=== PATIENT | female | born 1945 | race Caucasian/White ===

== ENCOUNTER 2020-01-30 14:21 | Inpatient (IN) | payer OTHER, MEDICAID, SELFPAY ==
[~2020-01-30] VITALS: Ht 152.4 cm; Wt 84.2 kg
[2020-01-30 14:38] VITALS: BP_SYST 141
--- NOTE | 2020-01-30 14:38 | NUR ---
Patient to ER bed 08 to gown for evaluation. Side rails up.
--- NOTE | 2020-01-30 14:40 | NUR ---
Pt brought by ambulance, A&Ox3, pt presents to ER for recent Dx of pneumonia not improving with Z-pack ,pt O2 90%, recent fever, current temp 97.7 ,pt placed on 2L oxygen, respirations even and unlabored, cap refill <3, pt also c/o chronic back pain, pt has a pending Covid test done last thursday, pt also had Covid testing December 22 and January 11 with negative results, will cont to monitor.
[2020-01-30] MEDS ORDERED: NACL 0.9% 3,000 ML IV ONE (15:12)
[2020-01-30] MEDS ORDERED: MEROPENEM 1 GM in NS 100 ML IV ONE (15:15)
[2020-01-30] MEDS ORDERED: VANCOMYCIN HCL 1,000 MG in NS 250 ML IV ONE (15:15)
--- NOTE | 2020-01-30 15:15 | NUR ---
Pt O2 89% room air ,placed on 2L oxygen NC
[2020-01-30] MEDS ORDERED: KETOROLAC TROMETHAMINE 30 MG VIAL IVP ONE (15:30)
--- NOTE | 2020-01-30 15:30 | NUR ---
Dr Hagen at bedside examining patient
--- NOTE | 2020-01-30 15:32 | NUR ---
report received from GENEVA Riojas. will continue care
[2020-01-30 15:50] LABS: BASOPHILS % (AUTO) 0.6 % (0.0-2.0); EOSINOPHILS # (AUTO) 0.3 K/uL (0.0-0.4); EOSINOPHILS % (AUTO) 5.6 % (0.0-4.0); HEMATOCRIT 39.1 % (36-48); HEMOGLOBIN 12.7 g/dL (12.0-16.0); LYMPHOCYTES # (AUTO) 1.7 K/uL (1.0-5.5); LYMPHOCYTES % (AUTO) 28.5 % (20.5-51.5); MEAN CORPUSCULAR HEMOGLOBIN 31 pg (27-31); MEAN CORPUSCULAR HGB CONC 33 % (32-36); MEAN CORPUSCULAR VOLUME 94 fL (79.0-98.0); MONOCYTES # (AUTO) 0.9 K/uL (0.0-1.0); MONOCYTES % (AUTO) 15.4 % (1.7-9.3); NEUTROPHILS # (AUTO) 2.9 K/uL (1.8-7.7); NEUTROPHILS % (AUTO) 49.9 % (40.0-70.0); PLATELET COUNT (AUTO) 277 K/uL (130-430); RED BLOOD CELL COUNT(AUTO) 4.15 MIL/uL (4.2-6.2); RED CELL DISTRIBUTION WIDTH 13.4 % (9.0-15.0); WHITE BLOOD COUNT (AUTO) 5.9 K/uL (4.8-10.8)
[2020-01-30 15:52] LABS: BILIRUBIN,URINE NEGATIVE (NEGATIVE); BLOOD, URINE NEGATIVE (NEGATIVE); CLARITY/URINE CLEAR (CLEAR); COLOR,URINE YELLOW (YELLOW); GLUCOSE,URINE NEGATIVE (NEGATIVE); KETONES,URINE NEGATIVE (NEGATIVE); LEUKOCYTE ESTERASE ,URINE NEGATIVE (NEGATIVE); NITRITE, URINE NEGATIVE (NEGATIVE); PROTEIN URINE NEGATIVE (NEGATIVE); UROBILINOGEN,URINE 0.2 (0.2-1.0)
--- NOTE | 2020-01-30 15:54 | NUR ---
Patient arrived with copy of POLST. Patient's code status is DNR with comfort focused treatment paperwork completed and placed in chart.
[2020-01-30] MEDS ORDERED: LORazepam 2 MG/ML VIAL IVP ONE (16:00)
[2020-01-30] MEDS ORDERED: MAGNESIUM SULFATE 50 ML IV ONE (16:00)
[2020-01-30] MEDS ORDERED: HALOPERIDOL LACTATE 5 MG/ML VIAL IM ONE (16:00)
[2020-01-30] MEDS ORDERED: methylPREDNISolone SOD SUCC/PF 62.5 MG/ML VIAL IVP ONE (16:00)
[2020-01-30 16:02] LABS: ANION GAP 10 (5-15); CALCIUM 8.8 mg/dL (8.4-11.0); CHLORIDE 102 mmol/L (98-107); CREATININE 1.66 mg/dL (0.55-1.30); GLUCOSE 106 mg/dL (70-99); POTASSIUM 4.5 mmol/L (3.5-5.1); SODIUM SERUM 137 mmol/L (136-145); UREA NITROGEN, BLOOD 25 mg/dL (8-21)
[2020-01-30 16:08] LABS: ALANINE AMINOTRANSFERASE 14 U/L (12-78); ALBUMIN 3.4 g/dL (3.4-4.8); ASPARTATE AMINOTRANSFERASE 17 U/L (10-37); TOTAL BILIRUBIN 0.6 mg/dL (0.0-1.0)
--- NOTE | 2020-01-30 16:26 | NUR ---
pATIENT COMPLAINING OF PAIN TO RIGHT HAND. SOME PURPLE DISCOLORATION NOTED. WILL REMOVE AND PLACE NEW ANGIOCATH
--- NOTE | 2020-01-30 16:39 | NUR ---
# 22 gauge angiocath placed to lt hand. Use of asceptic technique. Opsite placed over site. Blood return noted. Flushed with 10 cc of normal saline. No evidence of infiltration noted. Patient tolerated well.
--- NOTE | 2020-01-30 17:02 | NUR ---
Medication reconciliation completed with information provided by patient's [facility]. Any prior medication reconciliation on file was reviewed and corrected.
[2020-01-30] MEDS ORDERED: AMLO5TAB4 PO (17:35)
[2020-01-30] MEDS ORDERED: ACET325T53 PO (17:35)
[2020-01-30] MEDS ORDERED: BUSP10TA3 PO (17:35)
[2020-01-30] MEDS ORDERED: BUSP5TAB3 PO (17:35)
[2020-01-30] MEDS ORDERED: DIVA-74 PO (17:37)
[2020-01-30] MEDS ORDERED: OXYB10TA4 PO (17:37)
[2020-01-30] MEDS ORDERED: CEL20 PO (17:37)
[2020-01-30] MEDS ORDERED: dulcolax suppository RC (17:40)
[2020-01-30] MEDS ORDERED: MOM PO (17:49)
[2020-01-30] MEDS ORDERED: LISI10TA5 PO (17:49)
[2020-01-30] MEDS ORDERED: FURO-150 PO (17:49)
[2020-01-30] MEDS ORDERED: HYDR-4274 PO (17:49)
--- NOTE | 2020-01-30 17:57 | NUR ---
Patient will be admitted to care of Dr. Lama. Admitted to telemetry unit. bed placement pending. Complete and up to date summary report printed. SBAR report to be given at bedside with opportunity for questions.
[2020-01-30] MEDS ORDERED: IPRATROPIUM/ALBUTEROL SULFATE 3 ML AMPUL.NEB (DUONEB) INH PRN (18:00)
[2020-01-30] MEDS ORDERED: cefTRIAXone 1 GM in D5W 50 ML IV SCH (18:00)
[2020-01-30] MEDS ORDERED: ACETAMINOPHEN 500 MG TABLET PO PRN (18:00)
[2020-01-30] MEDS ORDERED: ONDANSETRON HCL 4 MG/2 ML VIAL IVP PRN (18:00)
[2020-01-30] MEDS ORDERED: LEVO88TA2 PO (18:02)
[2020-01-30] MEDS ORDERED: OLAN2.5T3 PO (18:02)
[2020-01-30] MEDS ORDERED: METH750T3 PO (18:02)
[2020-01-30] MEDS ORDERED: POTA20TA83 PO (18:02)
--- NOTE | 2020-01-30 18:20 | NUR ---
Bed placement at 1930. Patient informed.
--- NOTE | 2020-01-30 18:21 | NUR ---
called dietary for dinner tray
[2020-01-30] MEDS ORDERED: MILK OF MAGNESIA 30 ML UDC PO PRN (19:15)
[2020-01-30] MEDS ORDERED: OXYBUTYNIN CHLORIDE 5 MG XL TAB PO SCH (19:15)
--- NOTE | 2020-01-30 19:25 | NUR ---
Patient to go to bed 121C. Patient informed.
--- NOTE | 2020-01-30 19:26 | NUR ---
Bridger Portillo called informed patient is COVID 19 positive.
--- NOTE | 2020-01-30 19:50 | NUR ---
Transfer to TELEMETRY via ACLS protocol. Licensed nurse present. IV present no signs or symptoms of infiltration.
--- NOTE | 2020-01-30 20:30 | NUR ---
ADMISSION NOTE Received patient from ER via shanna, received report from GENEVA Pereyra. Patient admitted with diagnosis of acute chronic obstructive pulmonary disease exacerbation. Patient oriented to hospital routine, call light, toileting and safety-patient verbalized understanding.
--- NOTE | 2020-01-30 20:45 | NUR ---
DR MARIN INFORMED OF COVID RESULTS.
[2020-01-30 20:55] VITALS: BP_SYST 126
[2020-01-30 21:00] VITALS: BP_SYST 135
[2020-01-30] MEDS ORDERED: LISINOPRIL 10 MG TABLET (PRINIVIL) PO ONE (21:00)
[2020-01-30] MEDS ORDERED: POTASSIUM CHLORIDE 20 MEQ TAB.PRT.SR PO ONE (21:00)
[2020-01-30] MEDS: OLANZapine 2.5 MG TABLET PO SCH (21:20)
[2020-01-30] MEDS: DIVALPROEX SODIUM 250 MG TABLET(DEPAKOTE) PO SCH (21:20)
[2020-01-30] MEDS: ACETAMINOPHEN 325 MG TABLET PO PRN (21:20)
[2020-01-30] MEDS: busPIRone HCL 5 MG TABLET PO SCH (21:20)
[2020-01-30] MEDS: amLODIPine BESYLATE 5 MG TABLET PO SCH (21:30)
[2020-01-30] MEDS: CITALOPRAM HYDROBROMIDE 20 MG TABLET PO SCH (21:30)
[2020-01-30] MEDS: FUROSEMIDE 20 MG TABLET PO SCH (21:30)
[2020-01-30] MEDS: LEVOTHYROXINE SODIUM 0.088 MG TABLET PO SCH (21:30)
--- NOTE | 2020-01-30 21:30 | NUR ---
MEDICATIONS/ROUNDS Patient resting in bed, AAOx3, forgetful but able to let needs known, breathing evenly and nonlabored on 2L of oxygen via NC. Educated patient on due medications, patient stated understanding. Administered medications, patient tolerated them well. Patient complained of mild pain, educated patient on pain medication, nonpharmacological interventions, patient stated understanding. Administered pain medication, patient tolerated it well. No other needs at this time. Fall/safety/aspiration/isolation precautions, will continue to monitor. Addendum: 01/31/20 at 0720 by Khoi Erickson RN Celexa and Synthroid not given in ER.
--- NOTE | 2020-01-30 22:54 | NUR ---
CONSULT Paged Dr. Gonzalez regarding patient Elizabeth Vieyra for COPD. DR. Lama ordered.
--- NOTE | 2020-01-30 23:15 | NUR ---
ROUNDS Patient resting in bed, eyes closed, breathing evenly and nonlabored on 2L of oxygen via NC. No s/s of distress at this time, no other needs at this time. Fall/safety/aspiration/isolation precautions, will continue to monitor.
[2020-01-31 00:45] VITALS: BP_SYST 117
[2020-01-31] MEDS: methylPREDNISolone SOD SUCC 40 MG/ML VIAL IVP SCH ×3 (00:45→15:13)
--- NOTE | 2020-01-31 00:45 | NUR ---
MEDICATION/ROUNDS Patient resting in bed, eyes closed, breathing evenly and nonlabored on 2L of oxygen via NC. Vital signs stable. Educated patient on due medication, patient said "ok." Administered due medication, patient tolerated it well. No s/s of distress at this time, no other needs at this time. Fall/safety/aspiration/isolation precautions, will continue to monitor.
--- NOTE | 2020-01-31 06:58 | NUR ---
Nutrition Update Nuno Scale 17 noted. Pt admitted for COPD exacerbation Diet: Regular BMI: 37.5 kg/m2 RD to follow per nutrition care standards.
--- NOTE | 2020-01-31 06:58 | NUR ---
CLOSING NOTES Patient resting in bed, eyes closed, breathing evenly and nonlabored on 2L of oxygen via NC. Synthroid not available on all pixes, will endorse to morning shift RN. Needs met throughout the shift. No s/s of distress at this time, no other needs at this time. Fall/safety/aspiration/isolation precautions, will endorse care to morning shift RN.
[2020-01-31 08:00] VITALS: BP_SYST 136
--- NOTE | 2020-01-31 08:00 | NUR ---
Note Pt drowsy, but easily arousable. Pt has O2 on at 2L/nc and tele unit attached and intact at this time. No SOB/resp distress or pain/discomfort noted at this time. Pt's IV in left wrist intact and patent. Pt aware that breakfast tray on bedside table, states she will eat later on. Pt states she wants to go back to sleep. Pt next to nurses' station for close observation for needs and care. Call light within reach.
[2020-01-31] MEDS: LEVOTHYROXINE SODIUM 0.088 MG TABLET PO SCH (09:53)
[2020-01-31] MEDS: DIVALPROEX SODIUM 250 MG TABLET(DEPAKOTE) PO SCH ×2 (09:54→21:15)
[2020-01-31] MEDS: busPIRone HCL 5 MG TABLET PO SCH ×2 (09:54→21:15)
[2020-01-31] MEDS: CITALOPRAM HYDROBROMIDE 20 MG TABLET PO SCH (09:54)
[2020-01-31] MEDS: FUROSEMIDE 20 MG TABLET PO SCH ×2 (09:54→21:15)
[2020-01-31] MEDS: amLODIPine BESYLATE 5 MG TABLET PO SCH ×2 (09:54→21:15)
[2020-01-31] MEDS: POTASSIUM CHLORIDE 20 MEQ TAB.PRT.SR PO SCH (09:54)
[2020-01-31] MEDS: LISINOPRIL 10 MG TABLET (PRINIVIL) PO SCH (09:54)
--- NOTE | 2020-01-31 09:55 | NUR ---
Note Pt awake enough at this time (0945am) to take her PO medications. Pt was very drowsy since start of shift.
[2020-01-31 11:54] VITALS: BP_SYST 120
--- NOTE | 2020-01-31 14:15 | NUR ---
Note Pt has been using the BSC and ambulates to restroom to void and have bowel movement. Pt ate very little of her breakfast and lunch tray. Pt requested and received her Tylenol extra strength PO medication for back pain. Pt requested Dr Lama be called for [place] PO which pt usually receives for back pain. Dr Lama was paged at 1220pm, waiting for call back. Pt able to turn herself in bed for comfort. Pt stable at this time with O2 at 2L/nc and tele unit attached all shift. Bed alarm on all shift and bed in low position. Call light within reach.
--- NOTE | 2020-01-31 14:45 | NUR ---
Note Dr Lama was paged again per pt's request for pain medication - [place], at [phone].
[2020-01-31] MEDS: METHOCARBAMOL 500 MG TABLET PO SCH ×2 (15:12→21:15)
[2020-01-31] MEDS: OXYBUTYNIN CHLORIDE 5 MG TABLET PO SCH ×2 (15:12→21:15)
[2020-01-31] MEDS ORDERED: HYDROcodone/ACETAMIN 10-325 MG TAB ONE (15:24)
--- NOTE | 2020-01-31 15:43 | NUR ---
PATIENTS CELL PH: [phone]
[2020-01-31 16:00] VITALS: BP_SYST 138
--- NOTE | 2020-01-31 18:02 | NUR ---
Note Lab called and stated pt tested positive for COVID - 19 (test done last night on admission to floor)
--- NOTE | 2020-01-31 18:35 | NUR ---
Note Pt non compliant - have repeatedly requested pt to call staff before getting OOB to BSC or to restroom, pt does not do so. Pt's has had bed alarm on and bed in low position all shift. Pt refuses to wear O2 cannula on - sat is 98% on room air at this time. Pt denies any SOB/resp distress or severe pain/discomfort at this time. Tele unit attached and intact. IV in left wrist intact and patent. Pt has been checked on q1' and PRN all shift for needs and care. Pt maintained with safety and isolation precautions all shift. No needs noted at this time. Call light within reach. Pt next to nurses' station for close observation all shift. Pt sitting up in bed with dinner tray on bedside table across pt.
--- NOTE | 2020-01-31 18:45 | NUR ---
Note Dr Lama on the floor to assess pt and check labs/tests at this time.
[2020-01-31] MEDS: ACETAMINOPHEN 325 MG TABLET PO PRN (18:49)
--- NOTE | 2020-01-31 19:45 | NUR ---
OPENING NOTES Received report from GENEVA Barrios. Sinus rhythm on the telemonitor, no s/s of distress at this time, no other needs at this time, will continue to monitor.
[2020-01-31 20:05] VITALS: BP_SYST 138
--- NOTE | 2020-01-31 20:05 | NUR ---
ROUNDS Patient resting in bed, AAOx3, forgetful, able to let needs known, breathing evenly and nonlabored on 2L of oxygen via NC. Educated patient on fall/safety/aspiration/isolation precautions, call light system, patient stated understanding with return demonstration. Assisted patient to and from the bedside commode, hygiene care done. No other needs at this time. Fall/safety/aspiration/isolation precautions, will continue to monitor. Addendum: 01/31/20 at 2057 by Khoi Erickson RN Patient has an IV on the left wrist 20g SL, flushed, patent and benign, no s/s infection or infiltration noted at this time.
[2020-01-31] MEDS: HYDROcodone/ACETAMIN 10-325 MG TAB PO PRN (21:15)
[2020-01-31] MEDS: OLANZapine 2.5 MG TABLET PO SCH (21:15)
--- NOTE | 2020-01-31 21:15 | NUR ---
MEDICATIONS/ROUNDS Patient resting in bed, awake, breathing evenly and nonlabored on 2L of oxygen via NC. Patient complained of moderate pain, educated patient on pain medication and nonpharmacological interventions. Educated patient on due medications, patient stated understanding. Administered pain medication and due medications, patient tolerated them well. Patient asked for some snacks which was provided. No other needs at this time. Fall/safety/aspiration/isolation precautions, will continue to monitor.
[2020-02-01 00:45] VITALS: BP_SYST 136
[2020-02-01] MEDS: methylPREDNISolone SOD SUCC 40 MG/ML VIAL IVP SCH ×3 (00:45→15:28)
--- NOTE | 2020-02-01 00:45 | NUR ---
MEDICATION/ROUNDS Patient resting in bed, awake, breathing evenly and nonlabored on room air, patient denies SOB or difficulty breathing. Vital signs stable, O2 sat on room air 92%. Educated patient on due medication, patient stated understanding. Administered due medication, patient tolerated it well. No s/s of distress at this time, no other needs at this time. Fall/safety/aspiration/isolation precautions, will continue to monitor.
--- NOTE | 2020-02-01 02:10 | NUR ---
ROUNDS Patient resting in bed, eyes closed, breathing evenly and nonlabored on room air. No s/s of distress at this time, no other needs at this time. Fall/safety/aspiration/isolation precautions, will continue to monitor.
[2020-02-01] MEDS: HYDROcodone/ACETAMIN 10-325 MG TAB PO PRN ×4 (04:35→23:38)
--- NOTE | 2020-02-01 04:35 | NUR ---
MEDICATION/ROUNDS Patient resting in bed, awake, breathing evenly and nonlabored on 2L of oxygen via NC. Patient complained of moderate pain, educated patient on pain medication and nonpharmacological interventions, patient stated understanding. Administered pain medication, patient tolerated it well. No other needs at this time. Fall/safety/aspiration/isolation precautions, will continue to monitor. Addendum: 02/01/20 at 0510 by Khoi Erickson RN MEDICATION/ROUNDS Patient resting in bed, awake, breathing evenly and nonlabored on room air. Patient complained of moderate pain, educated patient on pain medication and nonpharmacological interventions, patient stated understanding. Administered pain medication, patient tolerated it well. No other needs at this time. Fall/safety/aspiration/isolation precautions, will continue to monitor.
[2020-02-01] MEDS: LEVOTHYROXINE SODIUM 0.088 MG TABLET PO SCH (06:05)
--- NOTE | 2020-02-01 06:41 | NUR ---
CLOSING NOTES Patient resting in bed, eyes closed, breathing evenly and nonlabored on room air. Educated patient earlier on due medications, patient stated understanding. Administered due medication earlier, patient tolerated it well. Educated patient on incentive spirometer, patient stated understanding but refused to do return demonstration. Needs met throughout the shift. No s/s of distress at this time, no other needs at this time. Fall/safety/aspiration/isolation precautions, will endorse care to morning shift RN.
[2020-02-01] MEDS: IPRATROPIUM/ALBUTEROL SULFATE 3 ML AMPUL.NEB (DUONEB) INH SCH ×3 (07:55→13:35)
[2020-02-01 08:00] VITALS: BP_SYST 138
--- NOTE | 2020-02-01 08:00 | NUR ---
Note Pt sleeping, wants to eat her breakfast later on. No SOB/resp distress or pain/discomfort noted at this time.IV in left wrist intact and patent. Tele unit attached and intact at this time. No needs noted at this time. Call light within reach.
[2020-02-01] MEDS: CITALOPRAM HYDROBROMIDE 20 MG TABLET PO SCH (09:45)
[2020-02-01] MEDS: busPIRone HCL 5 MG TABLET PO SCH ×2 (09:45→20:28)
[2020-02-01] MEDS: DIVALPROEX SODIUM 250 MG TABLET(DEPAKOTE) PO SCH ×2 (09:45→20:29)
[2020-02-01] MEDS: amLODIPine BESYLATE 5 MG TABLET PO SCH ×2 (09:46→20:30)
[2020-02-01] MEDS: OXYBUTYNIN CHLORIDE 5 MG TABLET PO SCH ×3 (09:46→20:29)
[2020-02-01] MEDS: FUROSEMIDE 20 MG TABLET PO SCH ×2 (09:46→20:29)
[2020-02-01] MEDS: POTASSIUM CHLORIDE 20 MEQ TAB.PRT.SR PO SCH (09:46)
[2020-02-01] MEDS: LISINOPRIL 10 MG TABLET (PRINIVIL) PO SCH (09:47)
[2020-02-01] MEDS: METHOCARBAMOL 500 MG TABLET PO SCH ×3 (09:47→20:30)
--- NOTE | 2020-02-01 11:50 | NUR ---
Note Pt resting in bed at this time after getting OOB with assist to void in BSC. Pt denies any needs at this time. Pain tolerable at this time. Call light within reach.
[2020-02-01 12:00] VITALS: BP_SYST 131
[2020-02-01] MEDS ORDERED: cefTRIAXone 1 GM in D5W 50 ML IV SCH (12:00)
[2020-02-01] MEDS: cefTRIAXone 1 GM in D5W 50 ML IV SCH (15:27)
[2020-02-01 16:00] VITALS: BP_SYST 127
[2020-02-01] MEDS ORDERED: DEXAMETHASONE SOD PHOSPHATE 4 MG/ML VIAL IVP ONE (17:00)
[2020-02-01] MEDS ORDERED: ALBUTEROL MDI INHALATION 8 GM INH INH PRN (17:15)
--- NOTE | 2020-02-01 18:10 | NUR ---
Note Pt has been resting in bed most of shift watching television and getting OOB to BSC with standby assist. Pt still non-compliant about called for assistance before getting OOB to BSC. Pt's bed alarm on and bed in low position all shift. Pt was checked on q1' and PRN all shift for needs and care. Tele unit attached and intact. Pt was maintained with safety and isolation precautions all shift. IV in left forearm intact and patent at this time.Pt next to nurses' station all shift for close observation. No needs noted at this time. Back pain tolerable at this time. Call light within reach. Pt sitting up in bed and eating her dinner at this time.
--- NOTE | 2020-02-01 20:00 | NUR ---
Opening notes Pt AAOx3, watching TV. VSS, afebrile, O2 sat 95% on room air. IV saline lock L. hand 22G clear and patent. PO meds passed, tolerated well. Pt c/o chronic back pain and asks for [place], reminded pt it was given at 5pm and due at 11pm, pt agreeable. Pt assisted to use the bedside commode and back to bed. Call light within reach. Bed low, locked, siderails up x3, alarm on. Droplet isolation maintained. To monitor.
[2020-02-01 20:05] VITALS: BP_SYST 148
[2020-02-01] MEDS: OLANZapine 2.5 MG TABLET PO SCH (20:30)
[2020-02-01] MEDS ORDERED: ENOXAPARIN SODIUM 30 MG/0.3 ML SYRINGE SUBCUT SCH (21:00)
--- NOTE | 2020-02-01 23:00 | NUR ---
Pain Pt awake, c/o chronic back pain, medicated with [place] 10/325 1 tab PO as needed and vitamins. Encouraged pt to call for assistance, pt verbalized understanding. To monitor.
[2020-02-01] MEDS: ASCORBIC ACID 500 MG TABLET PO SCH (23:37)
[2020-02-01] MEDS: CHOLECALCIFEROL (VITAMIN D-3) 400 UNIT TABLET PO SCH (23:38)
[2020-02-02 00:30] VITALS: BP_SYST 146
--- NOTE | 2020-02-02 02:00 | NUR ---
Rounds Pt asleep, no s/s distress or discomfort noted. O2 placed back on. GT feeding running at ordered rate. Hong catheter draining to gravity. Bed low, locked, siderails up. Droplet Isolation maintained. Call light within reach. To monitor. Addendum: 02/02/20 at 0207 by Carla Rodriguez RN Disregard above notes, incorrect pt.
--- NOTE | 2020-02-02 02:15 | NUR ---
Rounds Pt asleep, no s/s distress or discomfort noted. Call light within/items within reach. Bed low, locked, siderails up x3, alarm on. To monitor.
--- NOTE | 2020-02-02 05:57 | NUR ---
CONSULTATION PAGED/CALLED Reason for Consultation: COVID 19 POSITIVE Person Who was Notified: SHANNEN Consulting Physician: Manager [employer] Specialty: ID Ordering Physician:
[2020-02-02] MEDS: IPRATROPIUM/ALBUTEROL SULFATE 3 ML AMPUL.NEB (DUONEB) INH SCH ×2 (06:00→12:00)
--- NOTE | 2020-02-02 06:31 | NUR ---
Closing notes Pt asleep, no s/s distress or sob noted. Call light within reach. Pt goes to bedside commode with assist. Bed low, locked, siderails up x3, alarm on. Droplet isolation maintained. To endorse to AM nurse.
[2020-02-02] MEDS: LEVOTHYROXINE SODIUM 0.088 MG TABLET PO SCH (06:34)
--- NOTE | 2020-02-02 07:30 | NUR ---
OPENING NOTE Patient resting in the bed. No acute distress. Skin warm and dry to touch. SL intact to LFA, no redness, no swelling, patent. Safety measure maintained. Call light within reached. Bed locked in low position, side rails up, bed alarm on. Isolation maintained. Continue to monitor.
[2020-02-02 07:50] VITALS: BP_SYST 125
[2020-02-02] MEDS: CITALOPRAM HYDROBROMIDE 20 MG TABLET PO SCH (09:00)
[2020-02-02] MEDS: POTASSIUM CHLORIDE 20 MEQ TAB.PRT.SR PO SCH (09:00)
[2020-02-02] MEDS: busPIRone HCL 5 MG TABLET PO SCH ×2 (09:00→22:11)
[2020-02-02] MEDS: FUROSEMIDE 20 MG TABLET PO SCH ×2 (09:00→22:11)
[2020-02-02] MEDS: DEXAMETHASONE SOD PHOSPHATE 4 MG/ML VIAL IVP SCH (09:00)
[2020-02-02] MEDS: DIVALPROEX SODIUM 250 MG TABLET(DEPAKOTE) PO SCH ×2 (09:00→22:11)
[2020-02-02] MEDS: OXYBUTYNIN CHLORIDE 5 MG TABLET PO SCH ×3 (09:00→22:11)
[2020-02-02] MEDS: LISINOPRIL 10 MG TABLET (PRINIVIL) PO SCH (09:01)
[2020-02-02] MEDS: ASCORBIC ACID 500 MG TABLET PO SCH ×2 (09:01→22:09)
[2020-02-02] MEDS: METHOCARBAMOL 500 MG TABLET PO SCH ×3 (09:01→22:09)
[2020-02-02] MEDS: amLODIPine BESYLATE 5 MG TABLET PO SCH ×2 (09:01→22:11)
[2020-02-02] MEDS: CHOLECALCIFEROL (VITAMIN D-3) 400 UNIT TABLET PO SCH (09:01)
--- NOTE | 2020-02-02 09:02 | NUR ---
AM SCHEDULE MED GIVEN, TOLERATED WELL.
--- NOTE | 2020-02-02 10:50 | NUR ---
SEEN BY Daniela NG DEEPTHI. Reported to Dr. Villanueva, the patient had wheezing in this morning, non-productive cough. COVID test positive on 01/30/20. Patient on room air. O2 sat 94%.
--- NOTE | 2020-02-02 10:57 | NUR ---
SEEN AND EXAMINED BY CORNELIUS RUBIO Reported to Dr. Myers, the patient had wheezing this morning but no breathing treatment order. Dr. Myers ordered Albuterol MDI Q4hr PRN. Order noted and carry out.
[2020-02-02] MEDS: HYDROcodone/ACETAMIN 10-325 MG TAB PO PRN ×3 (11:15→22:09)
--- NOTE | 2020-02-02 11:16 | NUR ---
NORCO GIVEN Patient c/o pain pain 01/24. [place] 10/325mg 1 tab given. No acute distress. Safety measure maintained. Call light within reached. Bed locked in low position, side rails up, bed alarm on. Continue to monitor.
[2020-02-02 12:00] VITALS: BP_SYST 128
[2020-02-02] MEDS: AZITHROMYCIN 500 MG in NS 250 ML IV SCH (12:52)
[2020-02-02 13:02] LABS: C-REACTIVE PROTEIN QUANT 0.6 mg/dL (0-0.5)
[2020-02-02] MEDS: ENOXAPARIN SODIUM 100 MG/ML SYRINGE SQ SCH (13:38)
[2020-02-02] MEDS: ACETAMINOPHEN 325 MG TABLET PO PRN (13:39)
--- NOTE | 2020-02-02 13:40 | NUR ---
TYLENOL GIVEN Patient c/o back pain 10/24, Tylenol 650mg PO given as orderer. No acute distress. Patient resting in the bed. Safety measure maintained. Call light within reached. Bed locked in low position, side rails up, bed alarm on. Isolation maintained. Continue to monitor.
[2020-02-02] MEDS: ALBUTEROL MDI INHALATION 8 GM INH INH PRN ×2 (13:46→22:25)
[2020-02-02 14:16] VITALS: BP_SYST 125
--- NOTE | 2020-02-02 15:25 | NUR ---
BEDSIDE COMMODE Assisted patient to use bedside commode. Void freely, no hematuria/dysuria noted. Good pericare provided. Assisted back to bed. Safety measure maintained. Call light within reached. Bed locked in low position, side rails up, bed alarm on. Continue to monitor.
[2020-02-02] MEDS: cefTRIAXone 1 GM in D5W 50 ML IV SCH (15:45)
[2020-02-02 16:00] VITALS: BP_SYST 132
--- NOTE | 2020-02-02 17:14 | NUR ---
NORCO GIVEN Patient c/o back pain 01/24. [place] 10/325mg 1 tab given. No acute distress. Safety measure maintained. Call light within reached. Bed locked in low position, side rails up, bed alarm on. Continue to monitor.
--- NOTE | 2020-02-02 18:45 | NUR ---
CLOSING NOTE Patient resting in the bed. No acute distress. PRN pain med given as needed. Skin warm and dry to touch. SL intact to LFA, no redness, no swelling, patent. All needs met. Assisted to bedside commode during shift. Safety measure maintained. Call light within reached. Bed locked in low position, side rails up, bed alarm on. Isolation maintained. Will endorse to night nurse.
--- NOTE | 2020-02-02 19:01 | NUR ---
SEEN BY HOLLIS URENA Reported to Dr. Lama, the patient c/o pain when the [place] not due yet, had been given Tylenol in between. Currently the [place] Q6hr PRN and asked if okay to change to Q4hr PRN. Dr. Macedo agreed and with order the same dosage of [place] but change the frequency from Q6hr PRN to Q4hr PRN. Order noted and carried out.
--- NOTE | 2020-02-02 19:20 | NUR ---
OPENING NOTES Patient is sitting up in bed, no respiratory distress noted, room air, IV site patent, dressings c/d/i, call light within reach, bed alarm refused after patient education provided and commode at bedside, patient ambulates and gets back to bed with no shortness of breath, bed at lowest position. Will continue to monitor.
[2020-02-02 20:00] VITALS: BP_SYST 138
--- NOTE | 2020-02-02 21:15 | NUR ---
Patient is provided pain medication, and scheduled medications, patient tolerated well, commode emptied, chocolate pudding provided. Call light within reach, incentive spirometer at side table, education provided for incentive spirometer, patient verbalizes teach back. Will continue to monitor.
--- NOTE | 2020-02-02 22:00 | NUR ---
Patient's O2 saturation at 97% with deep breathing, no shortness of breath noted. Will continue to monitor.
[2020-02-02] MEDS: OLANZapine 2.5 MG TABLET PO SCH (22:09)
--- NOTE | 2020-02-02 23:47 | NUR ---
Patient is resting, eyes closed, no signs of respiratory distress observed, turning provided, Will continue to monitor.
[2020-02-03] VITALS: BP_SYST 145
[2020-02-03] MEDS: HYDROcodone/ACETAMIN 10-325 MG TAB PO PRN ×6 (02:27→23:40)
--- NOTE | 2020-02-03 02:28 | NUR ---
Patient is provided PRN pain medication, patient ambulated to the commode and returned back to bed with little difficulty. Commode emptied. Will continue to monitor.
--- NOTE | 2020-02-03 04:11 | NUR ---
Patient is resting, no signs of distress observed, room air. Will continue to monitor.
[2020-02-03] MEDS: LEVOTHYROXINE SODIUM 0.088 MG TABLET PO SCH (07:05)
--- NOTE | 2020-02-03 07:15 | NUR ---
CLOSING NOTES Patient is resting, no signs of distress noted after using the commode, commode emptied, IV site patent, dressings c/d/i. Call light within reach, bed alarm refused after patient education provided, All needs met throughout shift. Will endorse care to oncoming shift.
--- NOTE | 2020-02-03 07:35 | NUR ---
OPENING NOTE Patient resting in the bed. No acute distress. No c/o pain at this time. Skin warm and dry to touch. SL intact to LFA, no redness, no swelling, patent. Safety measure maintained. Call light within reached. Bed locked in low position, side rails up, bed alarm on. On isolation. Will continue to monitor.
[2020-02-03 07:40] LABS: ANION GAP 7 (5-15); CALCIUM 8.6 mg/dL (8.4-11.0); CHLORIDE 104 mmol/L (98-107); CREATININE 1.55 mg/dL (0.55-1.30); GLUCOSE 110 mg/dL (70-99); POTASSIUM 4.2 mmol/L (3.5-5.1); SODIUM SERUM 138 mmol/L (136-145); UREA NITROGEN, BLOOD 38 mg/dL (8-21)
[2020-02-03 08:00] VITALS: BP_SYST 137
[2020-02-03] MEDS: DEXAMETHASONE SOD PHOSPHATE 4 MG/ML VIAL IVP SCH (09:50)
[2020-02-03] MEDS: busPIRone HCL 5 MG TABLET PO SCH ×2 (09:50→20:30)
[2020-02-03] MEDS: FUROSEMIDE 20 MG TABLET PO SCH ×2 (09:50→20:30)
[2020-02-03] MEDS: OXYBUTYNIN CHLORIDE 5 MG TABLET PO SCH ×3 (09:50→20:30)
[2020-02-03] MEDS: DIVALPROEX SODIUM 250 MG TABLET(DEPAKOTE) PO SCH ×2 (09:50→20:30)
[2020-02-03] MEDS: POTASSIUM CHLORIDE 20 MEQ TAB.PRT.SR PO SCH (09:50)
[2020-02-03] MEDS: CITALOPRAM HYDROBROMIDE 20 MG TABLET PO SCH (09:50)
[2020-02-03] MEDS: CHOLECALCIFEROL (VITAMIN D-3) 400 UNIT TABLET PO SCH (09:51)
[2020-02-03] MEDS: ASCORBIC ACID 500 MG TABLET PO SCH ×2 (09:51→20:30)
[2020-02-03] MEDS: LISINOPRIL 10 MG TABLET (PRINIVIL) PO SCH (09:51)
[2020-02-03] MEDS: ENOXAPARIN SODIUM 100 MG/ML SYRINGE SQ SCH (09:51)
[2020-02-03] MEDS: amLODIPine BESYLATE 5 MG TABLET PO SCH ×2 (09:51→20:30)
[2020-02-03] MEDS: METHOCARBAMOL 500 MG TABLET PO SCH ×3 (09:51→20:30)
[2020-02-03] MEDS: ALBUTEROL MDI INHALATION 8 GM INH INH PRN (09:52)
--- NOTE | 2020-02-03 09:53 | NUR ---
AM SCHEDULE MED GIVEN Patient resting in the bed. No acute distress. AM schedule med given, tolerated well. Isolation maintained. Call light within reached. Bed locked in low position, side rails up, bed alarm on. Continue to monitor.
--- NOTE | 2020-02-03 11:21 | NUR ---
NORCO GIVEN Patient c/o back pain 01/24. [place] 10/325mg 1 tab given as ordered. No acute distress. Isolation maintained. Safety measure maintained. Call light within reached. Bed locked in low position, side rails up, bed alarm on. Continue to monitor.
[2020-02-03 12:00] VITALS: BP_SYST 140
[2020-02-03] MEDS: AZITHROMYCIN 500 MG in NS 250 ML IV SCH (12:43)
--- NOTE | 2020-02-03 13:06 | NUR ---
ZITHROMAX HANG Patient eating lunch in the bed. No acute distress. HOB elevated. Aspiration precaution maintained. Isolation maintained. Safety measure maintained. Bed in low position, side rails up, bed alarm on. Call light within reached. Continue to monitor.
--- NOTE | 2020-02-03 13:36 | NUR ---
SEEN BY Daniela NG DEEPTHI WITH ORDER RECEIVED.
--- NOTE | 2020-02-03 14:00 | NUR ---
IV RE-INSERTION: Complaining of pain to IV site. Restarted on RFA, gauge 22 with good blood return, flush with NS 5ml. Successful after one attempt. Resumed Zithromax IVPB. Will observe for any signs of infiltration.
[2020-02-03] MEDS: cefTRIAXone 1 GM in D5W 50 ML IV SCH (15:09)
--- NOTE | 2020-02-03 15:11 | NUR ---
NORCO GIVEN Patient c/o back pain 01/24. [place] 10/325mg 1 tab given as ordered. No acute distress. Rocephin hang at this time. Isolation maintained. Safety measure maintained. Call light within reached. Bed locked in low position, side rails up, bed alarm on. Continue to monitor.
[2020-02-03 16:00] VITALS: BP_SYST 134
--- NOTE | 2020-02-03 16:10 | NUR ---
SEEN AND EXAMINED BY CORNELIUS RUBIO.
--- NOTE | 2020-02-03 18:43 | NUR ---
CLOSING NOTE Patient resting in the bed. No acute distress. PRN pain med gave around round. Skin warm and dry to touch. SL intact to RFA, no redness, no swelling, patent. All needs met. Assisted to bedside commode during shift. Isolation maintained. Safety measure maintained. Bed locked in low position, side rails up, bed alarm on. Call light within reached. Will endorse to night nurse.
--- NOTE | 2020-02-03 19:16 | NUR ---
SEEN AND EXAMINED BY HOLLIS URENA.
--- NOTE | 2020-02-03 19:30 | NUR ---
OPENING NOTES RECEIVED SBAR REPORT FROM DAY SHIFT RN. PT RESTING IN BED, ALERT & ORIENTED X3. VSS. O2 SAT 93%. BREATHING, DYSPNEA ON EXERTION. RIGHT FOREARM 22 G INTACT, NO S/S OF INFILTRATION NOTED. NO S/S OF DISTRESS NOTED. CALL LIGHT WITHIN REACH. SIDE RAILS X3. BED LOCKED IN LOWEST LEVEL. SAFETY, FALL, ASPIRATION, AND ISOLATION PRECAUTIONS MAINTAINED. WILL CONTINUE TO MONITOR.
[2020-02-03 20:00] VITALS: BP_SYST 152
[2020-02-03] MEDS: OLANZapine 2.5 MG TABLET PO SCH (20:30)
--- NOTE | 2020-02-03 20:30 | NUR ---
MEDICATION PASS SCHEDULED MEDICATIONS ADMINISTERED ORDERED. DISCUSSED MEDICATIONS ACTION AND POTENTIAL SIDE EFFECTS. PT VERBALIZED UNDERSTANDING. BREATHING EVEN AND UNLABORED TO ROOM AIR AT THIS TIME. NO S/S OF SHORTNESS OF BREATH NOTED. CALL LIGHT WITHIN REACH. SAFETY, FALL, AND ISOLATION PRECAUTIONS MAINTAINED. WILL CONTINUE TO MONITOR.
--- NOTE | 2020-02-03 22:45 | NUR ---
RN ROUNDS ASSISTED PT TO BEDSIDE COMMODE. PT BACK TO BED SAFELY. NO S/S OF DISTRESS NOTED AT THIS TIME. BREATHING EVEN AND UNLABORED TO ROOM AIR. CALL LIGHT WITHIN REACH. SIDE RAILS X3. BED LOCKED IN LOWEST LEVEL. SAFETY, FALL, ASPIRATION, AND ISOLATION PRECAUTIONS ARE IN PLACE. WILL MONITOR.
--- NOTE | 2020-02-03 23:45 | NUR ---
NORCO/PAIN MEDICATION, MIDNIGHT VITAL SIGN PT REPORTING BACK PAIN. ADMINISTERED NORCO ORDERED PRN. DISCUSSED MEDICATION ACTIONS AND POTENTIAL SIDE EFFECTS. PT VERBALIZED UNDERSTANDING. VSS. O2 SAT 96%. NO S/S OF SHORTNESS OF BREATH NOTED. CALL LIGHT WITHIN REACH. BED LOCKED IN LOWEST LEVEL. SIDE RAILS X3. SAFETY, FALL, ASPIRATION, AND ISOLATION PRECAUTIONS ARE MAINTAINED. WILL CONTINUE TO MONITOR.
[2020-02-04] VITALS: BP_SYST 156
--- NOTE | 2020-02-04 02:05 | NUR ---
RN ROUNDS ASSISTED PT TO BEDSIDE COMMODE. PT BACK TO BED SAFELY. PT ARABELLA ANY PAIN AT THIS TIME. BREATHING EVEN AND UNLABORED TO ROOM AIR. BED LOCKED IN LOWEST LEVEL. SIDE RAILS X2. CALL LIGHT WITHIN REACH. SAFETY, FALL, AND ISOLATION PRECAUTIONS ARE MAINTAINED. WILL CONTINUE TO MONITOR.
[2020-02-04] MEDS: HYDROcodone/ACETAMIN 10-325 MG TAB PO PRN ×5 (04:35→23:24)
--- NOTE | 2020-02-04 04:35 | NUR ---
NORCO/PAIN MEDICATION PT REPORTING BACK PAIN. ADMINISTERED NORCO ORDERED PRN. DISCUSSED MEDICATION ACTIONS AND POTENTIAL SIDE EFFECTS. PT VERBALIZED UNDERSTANDING. NO S/S OF SHORTNESS OF BREATH NOTED. CALL LIGHT WITHIN REACH. BED LOCKED IN LOWEST LEVEL. SIDE RAILS X3. SAFETY, FALL, ASPIRATION, AND ISOLATION PRECAUTIONS ARE MAINTAINED. WILL MONITOR.
[2020-02-04] MEDS: LEVOTHYROXINE SODIUM 0.088 MG TABLET PO SCH (06:05)
--- NOTE | 2020-02-04 06:55 | NUR ---
CLOSING NOTES PT RESTING IN BED. BREATHING EVEN AND UNLABORED TO ROOM AIR. RIGHT FOREARM 22 G INTACT, NO S/S OF INFILTRATION NOTED. NO S/S OF DISTRESS NOTED. CALL LIGHT WITHIN REACH. SIDE RAILS X3. BED LOCKED IN LOWEST LEVEL. SAFETY, FALL, ASPIRATION, AND ISOLATION PRECAUTIONS MAINTAINED. ALL NEEDS ARE MET THROUGHOUT SHIFT. WILL CONTINUE TO MONITOR UNTIL ENDORSE TO DAY SHIFT RN.
[2020-02-04 08:00] VITALS: BP_SYST 149
--- NOTE | 2020-02-04 08:00 | NUR ---
OPENING NOTES RECEIVED PT IN BED, ALERT & ORIENTED X3. VSS. O2 SAT 96%. ASSISTED TO BS COMMDE, PT VOIDED. BREATHING, DYSPNEA ON EXERTION. RIGHT FOREARM 22 G INTACT, NO S/S OF INFILTRATION NOTED. NO S/S OF DISTRESS NOTED. CALL LIGHT WITHIN REACH. SIDE RAILS X3. BED LOCKED IN LOWEST LEVEL. SAFETY, FALL, ASPIRATION, AND ISOLATION PRECAUTIONS MAINTAINED. WILL CONTINUE TO MONITOR.
[2020-02-04] MEDS: DEXAMETHASONE SOD PHOSPHATE 4 MG/ML VIAL IVP SCH (09:10)
[2020-02-04] MEDS: busPIRone HCL 5 MG TABLET PO SCH ×2 (09:10→22:03)
[2020-02-04] MEDS: POTASSIUM CHLORIDE 20 MEQ TAB.PRT.SR PO SCH (09:10)
[2020-02-04] MEDS: FUROSEMIDE 20 MG TABLET PO SCH ×2 (09:10→22:04)
[2020-02-04] MEDS: OXYBUTYNIN CHLORIDE 5 MG TABLET PO SCH ×3 (09:10→22:03)
[2020-02-04] MEDS: CITALOPRAM HYDROBROMIDE 20 MG TABLET PO SCH (09:10)
[2020-02-04] MEDS: DIVALPROEX SODIUM 250 MG TABLET(DEPAKOTE) PO SCH ×2 (09:10→22:03)
[2020-02-04] MEDS: ASCORBIC ACID 500 MG TABLET PO SCH ×2 (09:11→22:04)
[2020-02-04] MEDS: METHOCARBAMOL 500 MG TABLET PO SCH ×3 (09:11→22:04)
[2020-02-04] MEDS: amLODIPine BESYLATE 5 MG TABLET PO SCH ×2 (09:11→22:04)
[2020-02-04] MEDS: CHOLECALCIFEROL (VITAMIN D-3) 400 UNIT TABLET PO SCH (09:11)
[2020-02-04] MEDS: LISINOPRIL 10 MG TABLET (PRINIVIL) PO SCH (09:11)
[2020-02-04] MEDS: ENOXAPARIN SODIUM 100 MG/ML SYRINGE SQ SCH (09:12)
--- NOTE | 2020-02-04 09:46 | NUR ---
PT GIVEN PAIN MEDS FOR BACK PAIN.
[2020-02-04 12:20] VITALS: BP_SYST 158
[2020-02-04] MEDS: AZITHROMYCIN 500 MG in NS 250 ML IV SCH (13:28)
--- NOTE | 2020-02-04 13:33 | NUR ---
IV RE-INSERTION: Complaining of pain to IV site with nlister. Restarted on right hand. Successful after 1 attempts g.22. Will observe for any signs of infiltration.
--- NOTE | 2020-02-04 14:10 | NUR ---
PAIN MEDICATION GIVEN FOR PAIN 01/24
[2020-02-04] MEDS: cefTRIAXone 1 GM in D5W 50 ML IV SCH (15:25)
[2020-02-04 16:00] VITALS: BP_SYST 139
--- NOTE | 2020-02-04 18:42 | NUR ---
CLOSING NOTES, PT REMAINED STABLE THE WHOLE SHIFT, PT GIVEN PAIN MEDS PT REQUESTED. PT ABLE TO GO TO BS COMMODE BUT NEEDS ASSIST TO GO BACK TO BED. WILL ENDORSE TO NIGHT NURSE.
[2020-02-04 20:00] VITALS: BP_SYST 157
--- NOTE | 2020-02-04 20:00 | NUR ---
INITIAL NOTE RECEIVED PT IN BED, AOX3. RIGHT FOREARM 22 G INTACT, SALINE LOCKED, NO S/S OF INFILTRATION NOTED. CALL LIGHT WITHIN REACH. BED LOCKED IN LOWEST POSITION. SAFETY, FALL, ASPIRATION, AND ISOLATION PRECAUTIONS MAINTAINED. WILL CONTINUE TO MONITOR.
--- NOTE | 2020-02-04 22:00 | NUR ---
ROUNDS ASSISTED PT TO BEDSIDE COMMODE. PT VOIDED. ASSISTED BACK TO BED. DYSPNEA NOTED ON EXERTION. PULSE OX AT 97%.
[2020-02-04] MEDS: OLANZapine 2.5 MG TABLET PO SCH (22:04)
--- NOTE | 2020-02-04 23:00 | NUR ---
PAIN MEDICATION PT REQUESTING PAIN MEDICATION FOR CHRONIC PAIN. MEDICATED ORDERED. PT TOLERATED PO MEDICATION.
[2020-02-05] VITALS (7 sets, daily range): BP systolic 137–160
--- NOTE | 2020-02-05 01:15 | NUR ---
ROUNDS ASSISTED PATIENT TO BEDSIDE COMMODE, PATIENT VOIDED. ASSISTED BACK TO BED. DYSPNEA NOTED ON EXERTION HOWEVER PATIENT RECOVERED WELL. NO ADDITIONAL DISTRESS NOTED.
--- NOTE | 2020-02-05 04:00 | NUR ---
ROUNDS PT SLEEPING COMFORTABLY WITH NO SIGNS OF DISTRESS NOTED.
[2020-02-05] MEDS: LEVOTHYROXINE SODIUM 0.088 MG TABLET PO SCH ×2 (06:23→07:00)
[2020-02-05] MEDS: HYDROcodone/ACETAMIN 10-325 MG TAB PO PRN ×3 (06:23→21:28)
[2020-02-05 06:42] LABS: LACTATE DEHYDROGENASE 187 U/L (81-234)
--- NOTE | 2020-02-05 06:48 | NUR ---
CLOSING NOTE PT ASLEEP, RESPIRATIONS EVEN AND UNLABORED ON ROOM AIR. NO SIGNS OF DISTRESS NOTED. ALL PATIENT CARE NEEDS MET THROUGHOUT SHIFT. SAFETY/ISOLATION PRECAUTIONS MAINTAINED. PT STABLE. WILL CONTINUE TO MONITOR UNTIL ENDORSED TO AM NURSE.
[2020-02-05 06:56] LABS: C-REACTIVE PROTEIN QUANT < 0.2 mg/dL (0-0.5)
--- NOTE | 2020-02-05 07:50 | NUR ---
OPENING NOTES RECEIVED PT IN BED, PT IS AAOX3, DENIES PAIN, NO SOB, NO FEVER. SALINE LOCK INTACT AND PATENT. SAFETY PRECAUTION IN PLACE. CALL LIGHT IN REACH. BED IN LOW POSITION. WILL CONT TO MONITOR.
[2020-02-05] MEDS: DIVALPROEX SODIUM 250 MG TABLET(DEPAKOTE) PO SCH ×2 (09:41→21:26)
[2020-02-05] MEDS: FUROSEMIDE 20 MG TABLET PO SCH ×2 (09:41→21:26)
[2020-02-05] MEDS: DEXAMETHASONE SOD PHOSPHATE 4 MG/ML VIAL IVP SCH (09:41)
[2020-02-05] MEDS: CITALOPRAM HYDROBROMIDE 20 MG TABLET PO SCH (09:41)
[2020-02-05] MEDS: busPIRone HCL 5 MG TABLET PO SCH ×2 (09:41→21:26)
[2020-02-05] MEDS: POTASSIUM CHLORIDE 20 MEQ TAB.PRT.SR PO SCH (09:41)
[2020-02-05] MEDS: OXYBUTYNIN CHLORIDE 5 MG TABLET PO SCH ×3 (09:41→21:26)
[2020-02-05] MEDS: CHOLECALCIFEROL (VITAMIN D-3) 400 UNIT TABLET PO SCH (09:42)
[2020-02-05] MEDS: LISINOPRIL 10 MG TABLET (PRINIVIL) PO SCH (09:42)
[2020-02-05] MEDS: ASCORBIC ACID 500 MG TABLET PO SCH ×2 (09:42→21:27)
[2020-02-05] MEDS: amLODIPine BESYLATE 5 MG TABLET PO SCH ×2 (09:42→21:27)
[2020-02-05] MEDS: METHOCARBAMOL 500 MG TABLET PO SCH ×3 (09:42→21:27)
[2020-02-05] MEDS: ENOXAPARIN SODIUM 100 MG/ML SYRINGE SQ SCH (09:43)
[2020-02-05] MEDS: AZITHROMYCIN 500 MG in NS 250 ML IV SCH (13:04)
--- NOTE | 2020-02-05 13:07 | NUR ---
patient given pain medication for abd pain.
--- NOTE | 2020-02-05 13:22 | NUR ---
patient assisted to bs commode and back to bed/
--- NOTE | 2020-02-05 13:27 | NUR ---
Dietitian Recommendations *Recommend continue Regular Diet *Recommend provide Ensure Enlive x 1 daily to provide additional 350 kcal, 20 g protein to optimize nutritional intake.\ Please see Nutrition Assessment for details. ELODIA BAEZ
--- NOTE | 2020-02-05 15:00 | NUR ---
PT IN BED, GIVEN REQUESTED ICE CREAM.
[2020-02-05] MEDS: cefTRIAXone 1 GM in D5W 50 ML IV SCH (15:11)
[2020-02-05] MEDS: ALBUTEROL MDI INHALATION 8 GM INH INH PRN (15:45)
--- NOTE | 2020-02-05 15:45 | NUR ---
pt given 2 puffs of ventolin inhaler for c/o sob.
--- NOTE | 2020-02-05 18:48 | NUR ---
CLOSING NOTES PT 'S VITALS WNL. NO FEVER. PT C/O OF SOB THIS PM AND WAS GIVEN VENTOLIN INHALER. PT HAD GOOD RELIEF AFTER. PT HAD 1 BM TODAY AND ASSISTED TO VOID TO THE BS COMMODE ABOUT 4 X TODAY. WILL ENDORSE TO NIGHT NURSE.
--- NOTE | 2020-02-05 21:12 | NUR ---
ASSIST OUT OF BED TO BSC , NO TROUBLE URINATING , FALL MEASURES IMPLEMENTED assist back to Bed no SOB noted / .
[2020-02-05] MEDS: OLANZapine 2.5 MG TABLET PO SCH (21:27)
--- NOTE | 2020-02-05 23:12 | NUR ---
NORCO 10 /325 MG PO GIVEN FOR GENERAL PAIN & HELPFUL , MONITOR .
--- NOTE | 2020-02-05 23:48 | NUR ---
HOURLY ROUNDING Patient awake on and off is verbally Responsive call lin given to patient SAFETY MEASURES IMPLEMENTED / .
--- NOTE | 2020-02-05 23:57 | NUR ---
ASSIST ENCOURAGE TURNING Repositioning off loading with pillows comfort measures implemented skin dry also warm .
[2020-02-06 02:00] VITALS: BP_SYST 131
[2020-02-06] MEDS: HYDROcodone/ACETAMIN 10-325 MG TAB PO PRN ×4 (04:11→21:40)
--- NOTE | 2020-02-06 04:15 | NUR ---
NORCO 10/325 MG PO administer for GENERAL PAIN 5/10 comfort measures implemented & helpful .
[2020-02-06] MEDS: LEVOTHYROXINE SODIUM 0.088 MG TABLET PO SCH (06:43)
[2020-02-06 08:00] VITALS: BP_SYST 134
--- NOTE | 2020-02-06 08:20 | NUR ---
Initial notes: Patient is alert and oriented, not showing any signs of distress on RA. Her RFA 22 SL is patent and flushed IV medication well. Patient is COVID test positive, isolation precautions are in place. Pain medication was given per pt request. I will continue to monitor patient throughout shift. Bed is low, locked, 2 side up and call light is within reach. Deepali BEAN
[2020-02-06] MEDS: busPIRone HCL 5 MG TABLET PO SCH ×2 (08:26→20:59)
[2020-02-06] MEDS: DEXAMETHASONE SOD PHOSPHATE 4 MG/ML VIAL IVP SCH (08:26)
[2020-02-06] MEDS: CITALOPRAM HYDROBROMIDE 20 MG TABLET PO SCH (08:26)
[2020-02-06] MEDS: DIVALPROEX SODIUM 250 MG TABLET(DEPAKOTE) PO SCH (08:26)
[2020-02-06] MEDS: POTASSIUM CHLORIDE 20 MEQ TAB.PRT.SR PO SCH (08:26)
[2020-02-06] MEDS: amLODIPine BESYLATE 5 MG TABLET PO SCH ×2 (08:27→21:01)
[2020-02-06] MEDS: FUROSEMIDE 20 MG TABLET PO SCH ×2 (08:27→21:00)
[2020-02-06] MEDS: METHOCARBAMOL 500 MG TABLET PO SCH ×3 (08:28→21:01)
[2020-02-06] MEDS: LISINOPRIL 10 MG TABLET (PRINIVIL) PO SCH (08:28)
[2020-02-06] MEDS: CHOLECALCIFEROL (VITAMIN D-3) 400 UNIT TABLET PO SCH (08:28)
[2020-02-06] MEDS: OXYBUTYNIN CHLORIDE 5 MG TABLET PO SCH ×3 (08:28→21:00)
[2020-02-06] MEDS: ASCORBIC ACID 500 MG TABLET PO SCH ×2 (08:28→21:01)
[2020-02-06] MEDS: ENOXAPARIN SODIUM 100 MG/ML SYRINGE SQ SCH (08:36)
--- NOTE | 2020-02-06 10:00 | NUR ---
Patient had a bowel movement this am, was formed, pt was changed and cleaned. Patient did not want to eat breakfast. Her medications were given without difficulty. Will f/u. Bed is low, locked, 2 side rails up and call light is within reach. Jimmy BEAN
--- NOTE | 2020-02-06 11:40 | NUR ---
PT HAD ON BM, PT CLEANED AND TURNED, PREI CARE DONE. PT TOLERATED WELL.
[2020-02-06 12:00] VITALS: BP_SYST 132
--- NOTE | 2020-02-06 12:00 | NUR ---
DC Planning : requested GENEVA Mendoza to contact Dr. Lama for dcp , retesting Covid19 vs dc back to [facility]. Addendum: 02/06/20 at 1340 by Bronwyn Salcedo RN >> Received dcp ordered: per dr. Lama " DC if next 2 COVID test are megative.".
[2020-02-06 12:01] LABS: BASOPHILS # (AUTO) 0.1 K/uL (0.0-0.2); BASOPHILS % (AUTO) 0.8 % (0.0-2.0); EOSINOPHILS % (AUTO) 0.1 % (0.0-4.0); HEMOGLOBIN 13.5 g/dL (12.0-16.0); LYMPHOCYTES # (AUTO) 1.2 K/uL (1.0-5.5); LYMPHOCYTES % (AUTO) 9.4 % (20.5-51.5); MEAN CORPUSCULAR HEMOGLOBIN 31 pg (27-31); MEAN CORPUSCULAR HGB CONC 33 % (32-36); MEAN CORPUSCULAR VOLUME 94 fL (79.0-98.0); MONOCYTES # (AUTO) 0.3 K/uL (0.0-1.0); MONOCYTES % (AUTO) 2.6 % (1.7-9.3); NEUTROPHILS # (AUTO) 11.2 K/uL (1.8-7.7); NEUTROPHILS % (AUTO) 87.1 % (40.0-70.0); PLATELET COUNT (AUTO) 292 K/uL (130-430); RED BLOOD CELL COUNT(AUTO) 4.38 MIL/uL (4.2-6.2); RED CELL DISTRIBUTION WIDTH 13.7 % (9.0-15.0); WHITE BLOOD COUNT (AUTO) 12.9 K/uL (4.8-10.8)
--- NOTE | 2020-02-06 12:10 | NUR ---
Called to request another test or DC planning. He ordered 2 more covid test, 24hrs apart. He mentioned if they are both negative the patient may be DC. Per lab, do test tomorrow in the am as they're picked up at 11am, I have put in the orders. Patient is doing well and not showing any signs of distress at this time. Bed is low, locked, 2 side rails up and call light is within reach. Jimmy BEAN
[2020-02-06] MEDS: AZITHROMYCIN 500 MG in NS 250 ML IV SCH (12:14)
--- NOTE | 2020-02-06 13:58 | NUR ---
Patient is sleeping, she is not showing any signs of distress. Bed is low, locked, 2 side rails up and call light is within reach. Jimmy BEAN
[2020-02-06] MEDS: cefTRIAXone 1 GM in D5W 50 ML IV SCH (16:08)
--- NOTE | 2020-02-06 16:12 | NUR ---
Patient asked for a snack, chocolate pudding was given and IV meds hung. Bed is low, locked, 2 side rails up and call light is within reach. Jimmy BEAN
[2020-02-06 18:00] VITALS: BP_SYST 150
--- NOTE | 2020-02-06 18:02 | NUR ---
Patient is having her dinner meal, she presents no new complaints. Bed is low, locked, 2 side rails up and call light is within reach. Jimmy BEAN
--- NOTE | 2020-02-06 18:47 | NUR ---
Initial notes: Patient is alert and oriented, not showing any signs of distress on RA. Her RFA 22 SL got infiltrated, a new LFA IV 24G was started and is patent. Patient is COVID test positive, isolation precautions are in place, physician requested a second test to see if we can d/c patient to skilled facility. Pain medication was given per pt request every 4 hours today. I will give report to material handler 1st shift nurse. Bed is low, locked, 2 side up and call light is within reach. Deepali RN Addendum: 02/06/20 at 1850 by Kelly Oconnor RN CLOSING NOTES, NOT INITIAL NOTES.
[2020-02-06 20:00] VITALS: BP_SYST 130
--- NOTE | 2020-02-06 20:00 | NUR ---
CHANGE OF SHIFT; Dr. Lama here, updated on pt. status, no order except for [place] virus test tomorrow. pt. awake, alert on high fowlers position when checked. denies any shortness of breath, on room air. IV lock on left forearm. 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 maintain bed rest and uses BSC. pt. needs attended. on fall risk precautions.
[2020-02-06] MEDS: DIVALPROEX SODIUM 125 MG CAP.(DEPAKOTE SPRINKLE) PO SCH (21:00)
--- NOTE | 2020-02-06 21:00 | NUR ---
NOTES: schedule medications given. reposition self.
[2020-02-06] MEDS: OLANZapine 2.5 MG TABLET PO SCH (21:01)
--- NOTE | 2020-02-06 21:40 | NUR ---
NOTES: pt. medicated with [place] po for c/o lower back pain.
--- NOTE | 2020-02-06 23:30 | NUR ---
NOTES: pt. able to sleep when checked. condition observed.
[2020-02-07 00:30] VITALS: BP_SYST 133
--- NOTE | 2020-02-07 02:00 | NUR ---
NOTES: condition observed. pt. sound asleep. no distress. call light within reach. on contact isolation for Covid.
--- NOTE | 2020-02-07 04:00 | NUR ---
NOTES: pt. remain sleeping. no further complaints. continue to monitor.call light at bedside.
--- NOTE | 2020-02-07 05:30 | NUR ---
NOTES; pt. still pretty sleeping. call light at bedside.
[2020-02-07] MEDS: LEVOTHYROXINE SODIUM 0.088 MG TABLET PO SCH (06:46)
[2020-02-07] MEDS: HYDROcodone/ACETAMIN 10-325 MG TAB PO PRN ×4 (06:46→20:08)
--- NOTE | 2020-02-07 06:50 | NUR ---
CLOSING NOTES; pt. medicated with [place] for c/o lower back p[ain, repositioned self. able to use bedside commode to void. IV lock iontact, for further care and assistance.
--- NOTE | 2020-02-07 07:56 | NUR ---
Initial notes: Patient is alert and oriented, not showing any signs of distress on RA. IV on LFA IV 24G is patent and not running any fluids at this time. A second COVID test was performed this morning, pt will remain in isolation precautions in the meantime. Pain medication was given 30 mins ago, upon assessment patient indicated her pain was tolerable. I got full report from shift superintendent nurse. Bed is low, locked, 2 side up and call light is within reach. Deepali BEAN
[2020-02-07] MEDS: CITALOPRAM HYDROBROMIDE 20 MG TABLET PO SCH (08:17)
[2020-02-07] MEDS: ASCORBIC ACID 500 MG TABLET PO SCH ×2 (08:17→20:10)
[2020-02-07] MEDS: OXYBUTYNIN CHLORIDE 5 MG TABLET PO SCH ×3 (08:17→20:09)
[2020-02-07] MEDS: LISINOPRIL 10 MG TABLET (PRINIVIL) PO SCH (08:17)
[2020-02-07] MEDS: DEXAMETHASONE SOD PHOSPHATE 4 MG/ML VIAL IVP SCH (08:17)
[2020-02-07] MEDS: amLODIPine BESYLATE 5 MG TABLET PO SCH ×2 (08:17→20:10)
[2020-02-07] MEDS: DIVALPROEX SODIUM 125 MG CAP.(DEPAKOTE SPRINKLE) PO SCH ×2 (08:17→20:11)
[2020-02-07] MEDS: METHOCARBAMOL 500 MG TABLET PO SCH ×3 (08:17→20:10)
[2020-02-07] MEDS: POTASSIUM CHLORIDE 20 MEQ TAB.PRT.SR PO SCH (08:17)
[2020-02-07] MEDS: CHOLECALCIFEROL (VITAMIN D-3) 400 UNIT TABLET PO SCH (08:17)
[2020-02-07] MEDS: FUROSEMIDE 20 MG TABLET PO SCH ×2 (08:17→20:09)
[2020-02-07] MEDS: busPIRone HCL 5 MG TABLET PO SCH ×2 (08:17→20:08)
[2020-02-07 08:18] VITALS: BP_SYST 158
--- NOTE | 2020-02-07 10:00 | NUR ---
Patient is sleeping, not showing any signs of distress. Bed is low, locked, 2 side up and call light is within reach. Deepali BEAN
[2020-02-07] MEDS: ENOXAPARIN SODIUM 100 MG/ML SYRINGE SQ SCH (10:25)
[2020-02-07 12:00] VITALS: BP_SYST 138
--- NOTE | 2020-02-07 12:17 | NUR ---
Patient is sitting up in bed, eating her meal. She is not showing any signs of distress. Bed is low, locked, 2 side up and call light is within reach. Deepali BEAN
--- NOTE | 2020-02-07 14:28 | NUR ---
Patient had a bowel movement, she was cleaned and changed, her bed sheets were changed as well. She is not any distress and presents no new complaints. Bed is low, locked, 2 side up and call light is within reach. Deepali BEAN
[2020-02-07] MEDS: cefTRIAXone 1 GM in D5W 50 ML IV SCH (15:55)
[2020-02-07 16:00] VITALS: BP_SYST 130
--- NOTE | 2020-02-07 16:13 | NUR ---
Patient is sitting in bed, watching TV, she was helped to be repositioned in bed, bed commode was emptied and pain medication was given her. She is not showing any signs of distress. Bed is low, locked, 2 side rails up and call light is within reach. Jimmy BEAN
--- NOTE | 2020-02-07 18:05 | NUR ---
Patient is sitting in bed, eating her dinner meal, she was repositioned and she is not showing any signs of distress at this time. Bed is low, locked, 2 side up and call light is within reach. Deepali BEAN
--- NOTE | 2020-02-07 18:24 | NUR ---
Paged to inform of positive covid test. Waiting for call back. Jimmy BEAN
--- NOTE | 2020-02-07 18:41 | NUR ---
Closing notes: Patient is alert and oriented, not showing any signs of distress on RA. IV on LFA IV 24G is patent and running KVO at this time. A second COVID test was performed this morning, it came back positive, pt will remain in isolation precautions in the meantime. was paged to advice of positive test - has not called back yet. Pain medication was given at 1530 this evening. Patient was cleaned and bed linen was changed today. Full report will be given to the annual giving officer nurse. Bed is low, locked, 2 side up and call light is within reach. Jimmy BEAN
--- NOTE | 2020-02-07 19:30 | NUR ---
CHANGE OF SHIFT; pt. already calling for pain med when I arrived. informed pt. will check if its time to give. no distress. on contact isolation for Covid.
[2020-02-07 20:00] VITALS: BP_SYST 148
[2020-02-07] MEDS: OLANZapine 2.5 MG TABLET PO SCH (20:10)
--- NOTE | 2020-02-07 20:30 | NUR ---
NOTES: pt. awake, alert. medicated for c/o chronic lower back pain . VS checked. no distress. on room air, occ bouts of non productive cough. kept HOB elevated. IV lock on left forearm. bruising on both arms noted. on court worker and shows sinus rhythm. call light within reach, reminded to use call light if help needed.
--- NOTE | 2020-02-07 21:00 | NUR ---
NOTES: schedule medications given as well. no further complaint.
--- NOTE | 2020-02-07 23:00 | NUR ---
NOTES: pt. resting, dozing off. condition observed.
[2020-02-08 00:45] VITALS: BP_SYST 154
[2020-02-08] MEDS: HYDROcodone/ACETAMIN 10-325 MG TAB PO PRN ×5 (01:00→19:48)
--- NOTE | 2020-02-08 01:00 | NUR ---
NOTES: pt. assisted getting up to use BSC, voided. repositioned when she went back to bed and kept warm.. medicated with [place] po for c/o chronic lower back pain. call light within reach.
--- NOTE | 2020-02-08 03:00 | NUR ---
NOTES: pt. sleeping when checked. continue to monitor.
--- NOTE | 2020-02-08 05:00 | NUR ---
notes: PT. STILL ASLEEP WHEN RECHECKED. EMPTIED BSC. ON FALL RISK. CALL LIGHT WITHIN REACH.
[2020-02-08] MEDS: LEVOTHYROXINE SODIUM 0.088 MG TABLET PO SCH (06:40)
--- NOTE | 2020-02-08 06:43 | NUR ---
CLOSING NOTES; PT.MEDICATED WITH NORCO PO FOR LOWER BACK PAIN, REPOSITIONED. SELF. NEEDS ATTENDED. IV LOCK INTACT ON LEFT FOREARM. KEPT ON ROOM AIR. WILL ENDORSE TO INCOMING DAY SHIFT NURSE. KEPT ON CONTACT ISOLATION.
--- NOTE | 2020-02-08 07:15 | NUR ---
OPENING NOTES PT RESTING IN BED, CHEST RISE AND FALL NOTED. EASILY AWAKEN. NONLABORED BREATHING NOTED ON ROOM AIR, O2 AT 96%. PT DENIES PAIN AND SOB AT THIS TIME. IV LINE INTACT AND PATENT, NO SIGNS OF INFILTRATION NOTED. NO ACUTE DISTRESS NOTED. ALL NEEDS MET. CALL LIGHT IN REACH. BED LOCKED AND IN LOWEST POSITION. FALL AND ASPIRATION AND ISOLATION PRECAUTIONS IN PLACE. CONTINUE TO MONITOR.
[2020-02-08 08:00] VITALS: BP_SYST 155
[2020-02-08] MEDS: CITALOPRAM HYDROBROMIDE 20 MG TABLET PO SCH (10:00)
[2020-02-08] MEDS: busPIRone HCL 5 MG TABLET PO SCH ×2 (10:00→20:51)
[2020-02-08] MEDS: DEXAMETHASONE SOD PHOSPHATE 4 MG/ML VIAL IVP SCH (10:00)
[2020-02-08] MEDS: DIVALPROEX SODIUM 125 MG CAP.(DEPAKOTE SPRINKLE) PO SCH ×2 (10:00→20:51)
[2020-02-08] MEDS: OXYBUTYNIN CHLORIDE 5 MG TABLET PO SCH ×3 (10:00→20:51)
--- NOTE | 2020-02-08 10:00 | NUR ---
ROUTINE MEDS ROUTINE MEDS ADMINISTERED ORDERED PER MD, EDUCATION GIVEN, TOLERATED WELL. PT VERBALIZED UNDERSTANDING. NO ACUTE DISTRESS NOTED. ALL NEEDS MET. CALL LIGHT IN REACH. CONTINUE TO MONITOR.
[2020-02-08] MEDS: FUROSEMIDE 20 MG TABLET PO SCH ×2 (10:01→20:51)
[2020-02-08] MEDS: LISINOPRIL 10 MG TABLET (PRINIVIL) PO SCH (10:01)
[2020-02-08] MEDS: METHOCARBAMOL 500 MG TABLET PO SCH ×3 (10:01→20:51)
[2020-02-08] MEDS: CHOLECALCIFEROL (VITAMIN D-3) 400 UNIT TABLET PO SCH (10:01)
[2020-02-08] MEDS: POTASSIUM CHLORIDE 20 MEQ TAB.PRT.SR PO SCH (10:01)
[2020-02-08] MEDS: ASCORBIC ACID 500 MG TABLET PO SCH ×2 (10:01→20:51)
[2020-02-08] MEDS: amLODIPine BESYLATE 5 MG TABLET PO SCH ×2 (10:01→20:51)
[2020-02-08] MEDS: ENOXAPARIN SODIUM 100 MG/ML SYRINGE SQ SCH (10:02)
--- NOTE | 2020-02-08 10:41 | NUR ---
PT C/O BACK PAIN, ADMINISTERED PAIN MEDS ORDERED PER MD, EDUCATION GIVEN, PT VERBALIZED UNDERSTANDING. CONTINUE TO MONITOR.
--- NOTE | 2020-02-08 10:56 | NUR ---
SPOKE TO PHARMACY REGARDING PT'S RENEWAL OF ROCEPHIN ABX, WILL INFORM DR. ALNA.
--- NOTE | 2020-02-08 11:05 | NUR ---
SPOKE TO DR. ALAN REGARDING PT'S ROCEPHIOsmar ABX, OK TO D/C. RECEIVED ORDERS, VERIFIED, AND CARRIED OUT. WILL SPEAK TO PHARM.
[2020-02-08 11:15] LABS: BASOPHILS # (AUTO) 0.1 K/uL (0.0-0.2); BASOPHILS % (AUTO) 0.9 % (0.0-2.0); EOSINOPHILS # (AUTO) 0.1 K/uL (0.0-0.4); EOSINOPHILS % (AUTO) 1.2 % (0.0-4.0); HEMATOCRIT 37.4 % (36-48); HEMOGLOBIN 12.2 g/dL (12.0-16.0); LYMPHOCYTES # (AUTO) 2.8 K/uL (1.0-5.5); LYMPHOCYTES % (AUTO) 24.2 % (20.5-51.5); MEAN CORPUSCULAR HEMOGLOBIN 31 pg (27-31); MEAN CORPUSCULAR HGB CONC 33 % (32-36); MEAN CORPUSCULAR VOLUME 95 fL (79.0-98.0); MONOCYTES # (AUTO) 0.6 K/uL (0.0-1.0); MONOCYTES % (AUTO) 5.4 % (1.7-9.3); NEUTROPHILS # (AUTO) 7.9 K/uL (1.8-7.7); NEUTROPHILS % (AUTO) 68.3 % (40.0-70.0); PLATELET COUNT (AUTO) 251 K/uL (130-430); RED BLOOD CELL COUNT(AUTO) 3.93 MIL/uL (4.2-6.2); RED CELL DISTRIBUTION WIDTH 14.1 % (9.0-15.0); WHITE BLOOD COUNT (AUTO) 11.6 K/uL (4.8-10.8)
[2020-02-08 11:25] LABS: ALANINE AMINOTRANSFERASE 48 U/L (12-78); ANION GAP 5 (5-15); ASPARTATE AMINOTRANSFERASE 25 U/L (10-37); CALCIUM 8.2 mg/dL (8.4-11.0); CHLORIDE 104 mmol/L (98-107); CREATININE 1.27 mg/dL (0.55-1.30); GLUCOSE 102 mg/dL (70-99); POTASSIUM 3.9 mmol/L (3.5-5.1); SODIUM SERUM 136 mmol/L (136-145); TOTAL BILIRUBIN 0.4 mg/dL (0.0-1.0); UREA NITROGEN, BLOOD 31 mg/dL (8-21)
--- NOTE | 2020-02-08 11:25 | NUR ---
SPOKE TO PHARM REGARDING DR. ALAN'S ORDERS REGARDING ROCEPHIN ABX.
[2020-02-08 11:32] LABS: C-REACTIVE PROTEIN QUANT < 0.2 mg/dL (0-0.5)
[2020-02-08 12:00] VITALS: BP_SYST 135
--- NOTE | 2020-02-08 12:00 | NUR ---
ROUNDS VITAL SIGNS STABLE. GAVE PT LUNCH. NO ACUTE DISTRESS NOTED. ALL NEEDS MET. CALL LIGHT IN REACH. CONTINUE TO MONITOR.
--- NOTE | 2020-02-08 14:45 | NUR ---
ROUTINE MEDS/ PAIN MEDS ROUTINE MEDS ADMINISTERED ORDERED PER MD, EDUCATION GIVEN, PT VERBALIZED UNDERSTANDING. PT C/O BACK PAIN, ADMINISTERED PRN PAIN MEDS ORDERED, EDUCATION GIVEN, PT VERBALIZED UNDERSTANDING. NO ACUTE DISTRESS NOTED. ALL NEEDS MET. CALL LIGHT IN REACH. CONTINUE TO MONITOR.
--- NOTE | 2020-02-08 14:58 | NUR ---
Discharge Planing: DCP faxed pt referral to [facility] ([phone]) DCP to follow up
--- NOTE | 2020-02-08 16:00 | NUR ---
VITAL SIGNS STABLE. NO ACUTE DISTRESS NOTED. ALL NEEDS MET. CALL LIGHT IN REACH. CONTINUE TO MONITOR.
[2020-02-08 16:02] VITALS: BP_SYST 155
--- NOTE | 2020-02-08 17:30 | NUR ---
ADMINISTERED DINNER TRAY TO PT. HOB ELEVATED. ALL NEEDS MET. CALL LIGHT IN REACH. CONTINUE TO MONITOR.
--- NOTE | 2020-02-08 18:26 | NUR ---
CLOSING NOTES PT AWAKE, ALERT, AND ORIENTED. WATCHING TELEVISION IN BED. NONLABORED BREATHING NOTED ON ROOM AIR, PT DENIES PAIN AND SOB AT THIS TIME. IV LINE INTACT AND PATENT, NO SIGNS OF INFILTRATION NOTED. NO ACUTE DISTRESS NOTED. ALL NEEDS MET. CALL LIGHT IN REACH. FALL AND ASPIRATION AND ISOLATION PRECAUTIONS IN PLACE. WILL ENDORSE TO NOC NURSE.
[2020-02-08 19:00] VITALS: BP_SYST 122
--- NOTE | 2020-02-08 19:15 | NUR ---
change of shift.pt.presents isolation status;droplet:covid19+.pt.presents quiescent affect;calm.resting viewing tv programming. pt.presennts iv access lock.pt.presents utilizing bsc.general status stable.respiratory status stable;unlabored@room air.call light/telephone w/in reach of the pt.
[2020-02-08 20:00] VITALS: BP_SYST 122
--- NOTE | 2020-02-08 20:00 | NUR ---
pt.assessed.v/s assessed values w/in normal limits.no c/o pain,nausea.i have apprised the pt. that snacks/beverages are available w/in the shift.pt.requested snacks;provided.i have attended to the [facility] [place];measured/cleaned placed w/in access of the pt.general status stable.respiratory status stable:@room air:02-sat%=96%.pt.capable to reposition self.call light/telephone w/in reach of the pt. Addendum: 02/09/20 at 0526 by Adilson Vera RN i have administered pain medication:norco;10/325mg.to re-assess the pain medication efficacy per pain mgx;protocol.
[2020-02-08] MEDS: OLANZapine 2.5 MG TABLET PO SCH (20:51)
--- NOTE | 2020-02-08 21:00 | NUR ---
2100p medications administered.pt.capable to ingest po medication w/out difficulty. depakote po administered.
--- NOTE | 2020-02-08 22:00 | NUR ---
pt.assessed.pt.presents quiescent affect;calm,resting,viewing tv programming.no c/o pain,l\nusea.no requsted psited @tis hour,.io have aqtted to [facility] bsc;measured/cleaned palced w/in acce3s of pt.pt.capble to reson slef.call loght/teleph w/in reac oif the pt.
[2020-02-09] VITALS: BP_SYST 125
--- NOTE | 2020-02-09 | NUR ---
pt.assessed.v/s assessed values w/in normal limits.pt.had requested snack.i have provided sandwich.i havet attended to the bsc. measured placed w/in access of the pt.pt.had inquired re:time fo pain medication;i apprised the pt.that the next dose is due@[id number]. pt.repositioned.call light/telephone w/in reach of the pt.
--- NOTE | 2020-02-09 00:45 | NUR ---
i have administered pain medication;norco;10/325mg .to re-assess the pain medication efficacy per pain mgx protocol.
[2020-02-09] MEDS: HYDROcodone/ACETAMIN 10-325 MG TAB PO PRN ×4 (00:46→17:42)
--- NOTE | 2020-02-09 02:00 | NUR ---
pt.assessed.pt.presents quiescent affect;calm,somnolent.i have attended to the bsc;clean.pt.repositioned self.general status stable.respiratory status stable;unlabored.call light/telephone w/in reach of the pt.
--- NOTE | 2020-02-09 04:00 | NUR ---
pt.assessed.v/s assessed values w/in normal limits.no c/o pain,nausea.no requests posited@this hour.i have attended to the bsc:measured/cleaned placed w/in access of the pt.pt.repositioned self.general status stable.respiratory status stable;unlabored.call light/telephone w/in reach of the pt.
--- NOTE | 2020-02-09 06:18 | NUR ---
pt.assessed.pt.assessed for cleanliness.pt.cleaned.pt.repositioned.i have attended to the [facility] [place].measured/cleaned placed w/in access of the pt. no c/o pain,nausea.no requests posited@this hour.general status stable.respiratory status stable;unlabored.call light/telephone placed w/in reach of the pt. Addendum: 02/09/20 at 06 by Adilson Vera RN i have weighed the pt.
[2020-02-09] MEDS: LEVOTHYROXINE SODIUM 0.088 MG TABLET PO SCH (06:48)
--- NOTE | 2020-02-09 06:54 | NUR ---
pt.had requested medication;pain.i have administered norco;10/325mg po.to re-assess the pain medication efficacy per pain mgx protocol.have administered synthroid 0700a dose.no additional requests posited@this hour.
[2020-02-09] MEDS: CITALOPRAM HYDROBROMIDE 20 MG TABLET PO SCH (08:00)
[2020-02-09] MEDS: busPIRone HCL 5 MG TABLET PO SCH (08:00)
[2020-02-09] MEDS: OXYBUTYNIN CHLORIDE 5 MG TABLET PO SCH ×2 (08:01→14:57)
[2020-02-09] MEDS: POTASSIUM CHLORIDE 20 MEQ TAB.PRT.SR PO SCH (08:01)
[2020-02-09] MEDS: DIVALPROEX SODIUM 125 MG CAP.(DEPAKOTE SPRINKLE) PO SCH (08:01)
[2020-02-09] MEDS: ASCORBIC ACID 500 MG TABLET PO SCH (08:02)
[2020-02-09] MEDS: CHOLECALCIFEROL (VITAMIN D-3) 400 UNIT TABLET PO SCH (08:02)
[2020-02-09] MEDS: METHOCARBAMOL 500 MG TABLET PO SCH ×2 (08:02→14:57)
[2020-02-09 08:10] VITALS: BP_SYST 154
--- NOTE | 2020-02-09 08:10 | NUR ---
Routine Patient resting comfortably in bed with no distress noted. Scheduled medications given per order. Patient stable at this time.
[2020-02-09] MEDS: LISINOPRIL 10 MG TABLET (PRINIVIL) PO SCH (08:31)
[2020-02-09] MEDS: FUROSEMIDE 20 MG TABLET PO SCH (08:31)
[2020-02-09] MEDS: amLODIPine BESYLATE 5 MG TABLET PO SCH (08:31)
[2020-02-09] MEDS: ENOXAPARIN SODIUM 100 MG/ML SYRINGE SQ SCH (08:32)
[2020-02-09] MEDS ORDERED: DEXAMETHASONE 1 MG TABLET (DECADRON) PO SCH (09:00)
--- NOTE | 2020-02-09 11:50 | NUR ---
Routine Patient resting quietly in bed with no complaint of pain or discomfort. Patient stable at this time. Emptied bm and urine from bedside commode. Patient stable.
[2020-02-09 12:00] VITALS: BP_SYST 155
[2020-02-09] MEDS ORDERED: DECADRON 4 MG TABLET PO SCH (12:02)
--- NOTE | 2020-02-09 12:53 | NUR ---
Routine Patient medicated for 6/10 back pain. Patient stable.
--- NOTE | 2020-02-09 13:45 | NUR ---
Discharge Planing: DCP spoke to Mami at [facility] ([phone]) patient will go to [facility], DCP made nurse aware DC order needed. DCP arranged transport on [facility] with [facility] ([phone]) and parient packet taken to nurse station.
--- NOTE | 2020-02-09 14:48 | NUR ---
PAGED PAGED HOLLIS MIRELES SPOKE WITH SHASHANK.
--- NOTE | 2020-02-09 14:58 | NUR ---
Scheduled medications given per order. Patient stable at this time.
[2020-02-09 16:10] VITALS: BP_SYST 151
--- NOTE | 2020-02-09 17:42 | NUR ---
Routine Patient medicated for 6/10 back pain. Patient resting quietly in bed. Stable.
[2020-02-09 17:49] VITALS: BP_SYST 151
--- NOTE | 2020-02-09 18:22 | NUR ---
[facility] CALLED CALLED FOR AN ETA SPOKE WITH SHAHZAD SHE INFORMED ME THAT IT WILL TAKE 30-45 MINUTES.
--- NOTE | 2020-02-09 18:27 | NUR ---
Called report to GENEVA Medina at [facility] ([phone]). Patient will go to Room 45[facility].
== END 2020-02-09 19:30 | DRG 177 ==
LOC: SED 14:21 → EEVIPCON 14:21 → STU 17:51
PROVIDERS: ADMIT Family Medicine; ATTEND Family Medicine
DX: U07.1 COVID-19 (principal); J12.89 Other viral pneumonia; J96.01 Acute respiratory failure with hypoxia; J44.1 Chronic obstructive pulmonary disease with (acute) exacerbation; J44.0 Chronic obstructive pulmonary disease with (acute) lower respiratory infection; Z66 Do not resuscitate; E03.9 Hypothyroidism, unspecified; F17.200 Nicotine dependence, unspecified, uncomplicated; G89.4 Chronic pain syndrome; I10 Essential (primary) hypertension; F32.9 Major depressive disorder, single episode, unspecified; F41.9 Anxiety disorder, unspecified; J20.9 Acute bronchitis, unspecified; Z79.899 Other long term (current) drug therapy
CPT/HCPCS: 36415; 36600; 71045; 80048; 80053; 81003; 82728; 82803-TC; 83605; 83615-TC; 85025; 85379; 86140; 87040-TC; 87081; 93005; 96365; 96366; 96372; 96375; 99291; G0378; J0456; J0696; J1030; J1100; J1630; J1650; J1885; J2060; J2930; J3475; J7050; J7060; U0003-CS